=== PATIENT | female | born 2005 | race Two or more races ===

== ENCOUNTER → 2025-07-27 | Outpatient (CLI) | payer MEDICAID, SELFPAY ==
--- NOTE | 2025-07-27 14:30 | XR_ITS ---
Examination: Pelvic ultrasound, transabdominal, complete Technique: Transabdominal ultrasound of the pelvis performed using grayscale imaging Date and time of exam: July 27, 2025, 1322 hours INDICATIONS: Vaginal bleeding after intercourse beginning 6 months ago, pelvic pain 2 years FINDINGS: Uterus 8.3 cm endometrial stripe 0.2 cm No uterine mass or intrauterine gestation Right ovary 3.2 cm arterial flow small follicles Left ovary 3.3 cm arterial flow small follicles IMPRESSION: No uterine or adnexal mass Mild free fluid in the cul-de-sac
== END | disposition home or self-care (01) ==
LOC: CDIM 13:08
PROVIDERS: PCP Specialist; Referring Provider Obstetrics & Gynecology; Visit Provider Obstetrics & Gynecology
DX: R10.2 Pelvic and perineal pain (principal)
CPT/HCPCS: 76856